=== PATIENT | male | born 2000 | race Caucasian/White ===

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

== ENCOUNTER 2019-06-29 13:28 | Emergency (ER) | payer OTHER ==
[~2019-06-29] VITALS: Ht 162.6 cm; Wt 84.1 kg
[~2019-06-29 13:28] MED LIST changes: -MELA5TAB17 PO; +MELA5TAB31 PO
[2019-06-29] MEDS ORDERED: LIDOCAINE 2% MDV 20 ML VIAL SC ONE (16:15)
[2019-06-29] MEDS ORDERED: KEFL500C17 PO (17:09)
[2019-06-29] MEDS ORDERED: NEOSPORIN TOP OINT 15GM TOP ONE (17:15)
[2019-06-29] MEDS ORDERED: CEPHALEXIN 500 MG CAP PO ONE (17:15)
[2019-06-29 17:18] VITALS: BP 135/62
== END 2019-06-29 17:19 | disposition home or self-care (01) ==
LOC: M ED 13:28
DX: S61.211A Laceration without foreign body of left index finger without damage to nail, initial encounter (principal); W26.9XXA Contact with unspecified sharp object(s), initial encounter; Y92.099 Unspecified place in other non-institutional residence as the place of occurrence of the external cause; Y93.G1 Activity, food preparation and clean up; Y99.9 Unspecified external cause status; Z87.891 Personal history of nicotine dependence